=== PATIENT | female | born 1960 | race African-American/Black ===

== ENCOUNTER 2018-05-24 11:06 | Emergency (ER) | payer MEDICARE, MEDICAID ==
[~2018-05-24] VITALS: Ht 170.2 cm; Wt 113.0 kg
[2018-05-24 11:12] VITALS: BP 125/50
== END 2018-05-24 16:02 | disposition left against medical advice (07) ==
LOC: ER 11:06
DX: Z53.21 Procedure and treatment not carried out due to patient leaving prior to being seen by health care provider (principal); E11.9 Type 2 diabetes mellitus without complications; I10 Essential (primary) hypertension; F20.9 Schizophrenia, unspecified; M19.90 Unspecified osteoarthritis, unspecified site; Z88.0 Allergy status to penicillin

== ENCOUNTER 2021-02-09 15:40 | Emergency (ER) | payer MEDICARE, MEDICAID ==
[~2021-02-09] VITALS: Ht 167.6 cm; Wt 77.0 kg
[2021-02-09 15:47] VITALS: BP 121/77
[2021-02-09] MEDS: ACETAMINOPHEN 325MG TABLET PO ONE ×2 (18:11→18:20)
[2021-02-09] MEDS ORDERED: BO1 TP (18:16)
[2021-02-09] MEDS ORDERED: ACET-2708 MT (18:16)
== END 2021-02-09 18:28 | disposition home or self-care (01) ==
LOC: ER 15:40
DX: T30.0 Burn of unspecified body region, unspecified degree (principal); T79.9XXA Unspecified early complication of trauma, initial encounter; I10 Essential (primary) hypertension; E11.9 Type 2 diabetes mellitus without complications; Z86.59 Personal history of other mental and behavioral disorders; Z88.0 Allergy status to penicillin
CPT/HCPCS: 99283